=== PATIENT | male | born 1990 | race Two or more races ===

== ENCOUNTER 2017-10-16 15:43 | Emergency (ER) | payer OTHER, MEDICAID ==
[2017-10-16] MEDS: IBUPROFEN 600 MG TAB PO (16:12)
[2017-10-16] MEDS: LIDOCAINE 1% (MDV) 10 ML INJ INFIL (17:32)
== END 2017-10-16 20:00 | disposition home or self-care (01) ==
LOC: FTE 20:00 → E/R 15:43
DX: S63.114A Dislocation of metacarpophalangeal joint of right thumb, initial encounter (principal); W21.19XA Struck by other bat, racquet or club, initial encounter; Y92.9 Unspecified place or not applicable
CPT/HCPCS: 26641; 73130-RT; 73140; 99283-25